=== PATIENT | male | born 2000 | race Two or more races ===

== ENCOUNTER 2024-09-01 13:33 | Emergency (ER) | payer OTHER ==
[~2024-09-01] VITALS: Ht 170.2 cm; Wt 63.6 kg
[2024-09-01 13:43] VITALS: BP 108/66; PULSE 62; RESP 12; TEMP 98.6; O2SAT 99
[2024-09-01] MEDS: IBUPROFEN 400 MG TABLET PO ONE (14:30)
[2024-09-01] MEDS: ACETAMINOPHEN 500 MG TABLET PO ONE (14:30)
[2024-09-01] MEDS ORDERED: HYDR-4072 PO (14:37)
== END 2024-09-01 14:59 | disposition home or self-care (01) ==
LOC: EMS 13:38
DX: K02.9 Dental caries, unspecified (principal); K08.89 Other specified disorders of teeth and supporting structures; F12.90 Cannabis use, unspecified, uncomplicated
CPT/HCPCS: 99283